=== PATIENT | female | born 1995 | race Two or more races ===

== ENCOUNTER 2020-08-18 04:00 | Emergency (ER) | payer OTHER ==
[~2020-08-18] VITALS: Ht 162.6 cm; Wt 83.9 kg
[2020-08-18] MEDS ORDERED: CLONAZEPAM1 MG (04:25)
== END 2020-08-18 14:55 | disposition home or self-care (01) ==
LOC: ER 04:00
DX: T42.4X2A Poisoning by benzodiazepines, intentional self-harm, initial encounter (principal); R40.0 Somnolence; F41.8 Other specified anxiety disorders; F33.8 Other recurrent depressive disorders; Z03.818 Encounter for observation for suspected exposure to other biological agents ruled out; Y92.89 Other specified places as the place of occurrence of the external cause

== ENCOUNTER 2022-12-26 08:39 | Outpatient (CLI) | payer OTHER ==
[~2022-12-26 08:39] MED LIST: CLONAZEPAM1 MG
== END 2022-12-26 08:58 | disposition home or self-care (01) ==
LOC: TOM 08:39
PROVIDERS: ATTEND Internal Medicine
DX: R07.9 Chest pain, unspecified (principal); C73 Malignant neoplasm of thyroid gland

== ENCOUNTER → 2023-10-02 | Emergency (ER) | payer OTHER ==
[~2023-10-02] VITALS: Ht 162.6 cm; Wt 90.7 kg
[2023-10-02 07:18] LABS: HEMATOCRIT 38.5 % (36.0-45.00); HEMOGLOBIN 12.8 g/dL (12.0-15.00); MEAN CORPUSCULAR HEMOGLOBIN 29.6 pg (27.00-32.0); MEAN CORPUSCULAR HGB CONC 33.3 g/dl (32.0-36.0); PLATELET COUNT 324 K/uL (150-450); RED BLOOD COUNT 4.32 M/uL (4.00-6.00); RED CELL DISTRIBUTION WIDTH 12.8 % (11.5-14.5)
[2023-10-02 08:06] LABS: ALBUMIN 3.2 gm/dL (3.4-5.0); BILIRUBIN TOTAL 0.63 mg/dL (0.3-1.2); BILIRUBIN,CONJUGATED 0.16 mg/dL (0.0-0.2); BILIRUBIN,UNCONJUGATED 0.47 mg/dL (0.0-0.6); CREATININE SERUM 0.8 mg/dL (0.55-1.02); GFR 84.8; GLOBULINA 3.9 G/DL (2.4-3.5); POTASSIUM 3.42 mEq/L (3.5-5.1); TOTAL PROTEIN 7.1 gm/dL (6.4-8.2)
[2023-10-02 08:26] LABS: ABG PH 7.365 (7.35-7.45); ABG pCO2 37.8 mmHg (35-45); BASE EXCESS -3.7 mmol/l; BICARBONATE 21.1 mmol/l (23-25); SaO2 97.1 %; Tco2 22.3 mmol/l; allen test SATISFACTORY; o2 21 %; puncture site RADIAL RIGHT
[2023-10-02 08:27] LABS: URINE APPEARANCE Clear; URINE BILIRRUBIN Negative (NEGATIVE); URINE BLOOD Negative; URINE COLOR Yellow; URINE GLUCOSE Negative (NEGATIVE); URINE LEUKOCYTE Negative; URINE NITRATE Negative; URINE PROTEIN Negative (NEGATIVE); URINE UROBILINOGEN 0.2 E.U./dl
[2023-10-02 08:27] LABS: INR 1.03; PARTIAL THROMBOPLASTIN TIME 27.7 SECONDS (22.0-34.0); PROTHROMBIN TIME 10.8 SECONDS (9.0-11.5)
[2023-10-02 08:31] LABS: URINE BACTERIA 119.5 uL (0.0-1933); URINE WBC 5.8 uL (0.0-23.2)
[2023-10-02 08:44] LABS: COCAINE POSITIVE (NEGATIVE); METHADONE NEGATIVE (NEGATIVE); OPIATES NEGATIVE (NEGATIVE); THC ( Cannabinoids) NEGATIVE (NEGATIVE)
[2023-10-02 09:06] LABS: URINE RBC 0.4 uL (0.0-20.8)
== END | disposition designated cancer center or children's hospital (05) ==
LOC: ER 06:35
PROVIDERS: General Practice
DX: T42.4X2A Poisoning by benzodiazepines, intentional self-harm, initial encounter (principal); I10 Essential (primary) hypertension